=== PATIENT | male | born 1960 | race African-American/Black ===

== ENCOUNTER 2022-07-10 13:04 | Emergency (ER) | payer OTHER ==
[2022-07-10] MEDS ORDERED: Ketorolac Tromethamine 30 MG/ML VIAL ONE (14:22)
[2022-07-10] MEDS ORDERED: LORazepam 2 MG/ML SYR.(CARPUJECT) ONE (14:22)
[2022-07-10] MEDS ORDERED: Dexamethasone 10 MG/ML VIAL ONE (14:22)
[2022-07-10] MEDS ORDERED: fentaNYL 50 mcg/mL 1 mL Vial ONE (14:22)
== END 2022-07-10 17:13 | disposition home or self-care (01) ==
LOC: ERS 13:04
DX: M54.41 Lumbago with sciatica, right side (principal); I83.91 Asymptomatic varicose veins of right lower extremity; I11.0 Hypertensive heart disease with heart failure; I50.9 Heart failure, unspecified; Z79.899 Other long term (current) drug therapy
CPT/HCPCS: 72100; 93005; 96374; 96375; J1100; J1885; J2060; J3010